=== PATIENT | female | born 1990 | race Caucasian/White ===

== ENCOUNTER 2021-11-12 04:41 | Inpatient (IN) ==
[2021-11-12] MEDS ORDERED: OXYTOCIN 30 UNITS/500 ML BAG IV PRN ×2 (07:36→14:59)
--- NOTE | 2021-11-12 08:13 | History & Physical Report ---
Date of Service November 12, 2021 Assessment & Plan (1) : Plan: 31 y/o G1 at 39 6/7 wga presents in early labor VSS Fetus cat 1 Labor - appears to be in early labor, will admit GBS neg epidural PRN Admission and Anticipated Discharge Date Admission Date: November 12, 2021 History of Present Illness Chief Complaint: VB Primary Care Provider: PT DECLINED 31 y/o G1 at 39 6/7 presented early this AM w/ c/o VB. She had gone to the bathroom at 3AM and noted some stringy dark blood clot on her pad and was instructed to come in. Only had pink discharge on pad following. +FM; denies regular ctx, LOF. On arrival, SSE was negative for rupture, no active bleeding noted. SVE 2/80/-2. Fetus cat 1. 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 denies hx STIs 04/2021 neg cotest Allergies Allergy/AdvReac Type Severity Reaction Status Date / Time No Known Allergies Allergy Verified 11/06/21 09:19 Home Medications Medication Instructions Recorded Confirmed Type prenat.vits,celeste,zgr-dngs-mgpuy 1 tab PO BID 05/17/21 11/12/21 History Patient History Medical History Benign breast lumps History of chicken pox Surgical History H/O breast biopsy Family History Father Tuberculosis Hypertension Mother Hypotension Thyroid disease Denies family history of Ovarian cancer Prostate cancer Breast cancer Lung cancer Cancer Social History Smoking Status: Never smoker Second Hand Exposure: No; Do You Dip or Chew Tobacco: No; Tobacco Cessation Education Requested by Patient: No Hx Alcohol Use: No Hx Substance Use: No Preferred Language: Austrian Communication Ability: Effective Chief Catalyst Operator Required: No Beliefs That Will Affect Care: Mandaeism Mandaeism Beliefs: Can not have gelatin marital status: marital status details: Pool chávezaundreawanda ([phone] Current Living Situation: Family Current Living Situation Comment: Lives with current occupational status: unemployed Other Information That Helps Us Care for You: No Feels Safe at Home: Yes Safety Concerns: Feels Safe At This Time Assistive Devices: None Physical Exam Genitourinary: Manual OB Exam: + cervical dilation 4 cm, + cervical effacement 80% and + station -2 OB Exam Monitor Tracing: + external FHT monitor used, + external uterine monitor used (q5) and + category I (125/mod/+accel/-decel) Results & Data ([facility]) Vital Signs (Past 12 Hours) Vital Signs Temp Pulse Resp BP 11/12/21 07:14 80 101/62 11/12/21 04:54 93 H 121/84 11/12/21 05:03 97.7 F 93 H 16 121/84 Laboratory Results OB Labs: Blood Type O Positive 04/19/21 Antibody Screen NEGATIVE 04/19/21 F Hemoglobin 12.6 g/dL (12.0-16.0) 08/23/21 Hematocrit 37.1 % (37-47) 08/23/21 Mean Corpuscular Volume 92.2 fL (80-100) 04/19/21 Platelet Count 226 K/uL (130-400) 04/19/21 Rubella IgG Antibody Equivocal (Immune) L 04/19/21 Rapid Plasma Reagin Nonreactive (Nonreactive) 04/19/21 Hepatitis B Surface Antigen Neg (Neg) 04/19/21 Hepatitis C Antibody Neg (Neg) 04/19/21 HIV (1&2) Ab and P24 Ag, 4th Gener Neg (Neg) 04/19/21 Glucose 1 Hour 50 gm Load 113 mg/dl (70-130) 08/23/21 OB Optional Labs: Chlamydia trachomatis RNA NOT DETECTED (NOT DETECTED) 04/19/21 Neisseria gonorrhoeae RNA NOT DETECTED (NOT DETECTED) 04/19/21 Independent Interpretation Lab Interpretation: NOB labs reviewed; rubella equivical and will receive PP-mln CSF/TRM-tqikngpk-bna ZGOUN-hrrjnzja-ahl GBS neg Code Status & VTE Plan VTE Prophylaxis Plan VTE Prophylaxis will be ordered: No Coding Level of Care Code None Diagnoses Z34.90
--- NOTE | 2021-11-12 08:59 | Labor Progress Brief Note ---
Date of Service November 12, 2021 Subjective Tolerating ctx well, no VB, no LOF. Good FM. Assessment & Plan (1) Normal labor: Plan: Introduced myself to patient, discussed her admission for early labor and plan of care. Will reassess cervix at least 2hr from last check, and can augment prn or allow progress if continuing. Patient declines pain mgmt at this time. SROM has not yet occurred per patient report. GBS neg. Admission and Anticipated Discharge Date Admission Date: November 12, 2021 Physical Exam Genitourinary: FHT Cat 1 [place] Q4min Cvx not rechecked at this visit Results & Data ([facility]) Vital Signs (Past 12 Hours) Vital Signs Temp Pulse Resp BP 11/12/21 07:14 98.2 F 80 20 101/62 11/12/21 04:54 93 H 121/84 11/12/21 05:03 97.7 F 93 H 16 121/84 Coding Level of Care Code None Diagnoses Normal labor O80; Z37.9
[2021-11-12 09:03] LABS: Hematocrit (blood only) 35.8 % (34.1-44.9); Hemoglobin 12.3 g/dl (12.0-16.0); Mean Corpuscular Hemoglobin 31.4 pg (25.0-34.0); Mean Corpuscular Hgb Conc 34.4 g/dL (32.0-36.0); Mean Corpuscular Volume 91.3 fL (80.0-100.0); Mean Platelet Volume 11.4 fL (9.4-12.3); Platelet Count 145 K/uL (130-400); RDW Coefficient of Variation 14.4 % (11.5-14.5); RDW Standard Deviation 47.8 fL (36.4-46.3); Red Blood Count 3.92 M/uL (3.93-5.22); White Blood Count 9.74 K/ul (4.8-10.8)
--- NOTE | 2021-11-12 12:27 | Labor Progress Brief Note ---
Date of Service November 12, 2021 Subjective Tolerating contractions with breathing, walking. Assessment & Plan (1) Normal labor: Plan: AROM now done, epidural on request. Admission and Anticipated Discharge Date Admission Date: November 12, 2021 Physical Exam Genitourinary: 5100/-1, no change. Offered AROM, accepted, AROM for clear fluid. FHT Cat 1 [place] Q 2-9min irregular. Results & Data ([facility]) Vital Signs (Past 12 Hours) Vital Signs Temp Pulse Resp BP 11/12/21 11:47 98.2 F 77 16 110/70 11/12/21 07:14 98.2 F 80 20 101/62 11/12/21 04:54 93 H 121/84 11/12/21 05:03 97.7 F 93 H 16 121/84 Coding Level of Care Code None Diagnoses Normal labor O80; Z37.9
[2021-11-12] MEDS: LACTATED RINGER'S 1,000 ML IV PRN ×3 (13:03→18:47)
[2021-11-12] MEDS ORDERED: ePHEDrine sulfate 50 MG/ML AMP ONE (13:09)
[2021-11-12] MEDS ORDERED: BUPIVACAINE 0.25% 30 ML VIAL ONE (13:10)
[2021-11-12] MEDS ORDERED: SODIUM CHLORIDE 0.9% INJ 10 ML VIAL ONE (13:10)
[2021-11-12] MEDS ORDERED: LIDOCAINE 2%/EPINEPHRINE 1:200,000 20 ML SDV ONE (13:10)
[2021-11-12] MEDS ORDERED: fentaNYL citrate 100 MCG/2 ML VIAL ONE (13:10)
[2021-11-12] MEDS ORDERED: fentaNYL 2MCG/ML ROPIVACAINE 1.25MG/ML 100 ML BAG EPI ONE (13:10)
[2021-11-12] MEDS ORDERED: ePHEDrine sulfate 50 MG/ML AMP IV PRN (14:00)
[2021-11-12] MEDS ORDERED: ONDANSETRON INJ 2 MG/ML 2 ML VIAL IV PRN (14:00)
[2021-11-12] MEDS ORDERED: fentaNYL 2MCG/ML ROPIVACAINE 1.25MG/ML 100 ML BAG EPI PRN (14:00)
[2021-11-12] MEDS ORDERED: diphenhydrAMINE 50 MG/ML VIAL IV PRN (14:00)
[2021-11-12] MEDS ORDERED: NALOXONE HCL 0.4 MG/1 ML VIAL/CARP IV PRN (14:00)
[2021-11-12] MEDS ORDERED: NALOXONE HCL 1 MG in SODIUM CHLORIDE 0.9% 1000ML 1,000 ML IV PRN (14:00)
[2021-11-12] MEDS ORDERED: NALBUPHINE HCL INJ 10 MG/ML AMP IV PRN (14:00)
--- NOTE | 2021-11-12 14:03 | Anesthesiology Consultation ---
Date of Service November 12, 2021 Assessment & Plan (1) Encounter for pre-operative examination: Chart Review Chart Review: Acceptable Risk for Surgery and Patient NOT seen in Pre Admission Testing Consults Requested none ASA ASA2 Proposed Anesthesia Anesthesia Type: Labor Epidural and CSE Risk / Benefits Reviewed With: PT / POA / Parent / Guardian, Accepts Plan and Informed Consent Obtained History Height/Weight Height: 4 ft 11.84 in Weight: 55.338 kg Allergies Allergy/AdvReac Type Severity Reaction Status Date / Time No Known Allergies Allergy Verified 11/06/21 09:19 Medications Home Medications Medication Instructions Recorded Confirmed Last Taken prenat.vits,celeste,rvu-vucb-msuri 1 tab PO BID 05/17/21 11/12/21 11/11/21 14:00 Active Medications Generic Name Dose Route Start Last Admin Trade Name Freq PRN Reason Stop Dose Admin Lactated Ringer's 1,000 mls @ 125 mls/hr 11/12/21 07:36 11/12/21 13:06 Lr IV 11/14/21 07:35 999 mls/hr .Q8H PRN Infusion L&D Protocol Protocol NPO Date Last Intake of Fluids: 11/12/21 Time Last Intake of Fluids: 13:00 Date Last Intake of Solids: 11/12/21 Time Last Intake of Solids: 07:00 Past Medical History Medical History Benign breast lumps History of chicken pox Exercise / Class Metabolic Activity II 4-5 Yardwork/Stairs/Walk up hill Past Family History Family History Father Tuberculosis Hypertension Mother Hypotension Thyroid disease Denies family history of Ovarian cancer Prostate cancer Breast cancer Lung cancer Cancer Past Surgical History Surgical History H/O breast biopsy Past Anesthesia History No Hx of Anesthesia Complications and No Family Hx of Anesthesia Complications History of PONV No Hx of PONV and No Hx of Motion Sickness Social History Smoking Status: Never smoker Do You Dip or Chew Tobacco: No Hx Alcohol Use: No Hx Substance Use: No substance use type: does not use Review of Systems no chest pain or sob Physical Exam Vital Signs Last Vital Signs Temp 36.9 C 11/12/21 13:51 Pulse 84 11/12/21 13:56 Resp 20 11/12/21 13:51 BP 97/80 L 11/12/21 13:51 Pulse Ox 100 11/12/21 13:56 ENMT Mouth: no TMJ abnormality Thyromental Distance: > or= 3.5 Finger Breadths Mallampati Class: II Neck normal visual inspection Respiratory normal respiratory effort Auscultation: lungs clear to auscultation bilaterally Cardiovascular Rate/Rhythm: regular rate and regular rhythm Musculoskeletal Spine: normal cervical ROM Neurologic moves all extremities Psychiatric Orientation: alert and oriented x 3 Testing Laboratory Results 11/12/21 08:35
[2021-11-12] MEDS ORDERED: CALCIUM CARBONATE 500 MG CHEWABLE TAB PO PRN (20:41)
--- NOTE | 2021-11-12 20:43 | Labor Progress Brief Note ---
Date of Service November 12, 2021 Assessment & Plan (1) Normal labor: Plan: Per RN, patient c/o GERD which worsens if she pushes, so patient has been reluctant to push at all or to give maximal effort when she does. Perhaps 1 hour of true pushing effort so far, with patient agreeing to give good effort for only 2 attempts per contraction much of the time. TUMS 1500mg ordered now, will then resume active pushing after hopefully getting some relief. Admission and Anticipated Discharge Date Admission Date: November 12, 2021 Physical Exam Genitourinary: FHT Cat 1 [place] Q2min Second stage - resting at the moment Results & Data ([facility]) Vital Signs (Past 12 Hours) Vital Signs Temp Pulse Resp BP Pulse Ox O2 Del Method 11/12/21 19:15 98.4 F 18 99 Room Air 11/12/21 18:50 98.6 F 20 11/12/21 20:38 98.1 F 11/12/21 20:36 81 100 11/12/21 19:15 98.1 F 11/12/21 19:15 98.4 F 11/12/21 20:31 95 H 99 11/12/21 20:28 89 109/67 11/12/21 20:26 91 H 99 11/12/21 20:21 96 H 98 11/12/21 20:16 113 H 99 11/12/21 20:13 97 H 105/57 L 11/12/21 20:11 100 H 99 11/12/21 20:06 119 H 98 11/12/21 20:01 87 99 11/12/21 19:59 100 H 100/59 L 11/12/21 19:56 96 H 97 11/12/21 19:51 114 H 99 11/12/21 19:49 94 H 109/59 L 11/12/21 19:46 112 H 99 11/12/21 19:41 116 H 99 11/12/21 19:36 92 H 99 11/12/21 19:31 119 H 99 11/12/21 19:30 95 H 140/63 11/12/21 19:26 103 H 99 11/12/21 19:21 107 H 98 11/12/21 19:20 107 H 88 L 11/12/21 19:16 97 H 99 11/12/21 19:11 94 H 99 11/12/21 19:06 91 H 99 11/12/21 19:01 104 H 98 11/12/21 19:00 90 110/80 11/12/21 18:56 105 H 100 11/12/21 18:51 147 H 98 11/12/21 18:46 97 H 100 11/12/21 18:44 85 116/70 11/12/21 18:41 76 98 11/12/21 18:36 77 98 11/12/21 18:31 76 99 11/12/21 18:30 78 115/68 11/12/21 18:26 74 98 11/12/21 18:21 85 100 11/12/21 18:16 96 H 99 11/12/21 18:15 139 H 107/69 11/12/21 18:11 84 100 11/12/21 18:06 97 H 100 11/12/21 18:04 99.9 F H 90 20 105/59 L 11/12/21 18:01 82 99 11/12/21 17:58 76 190/125 H 11/12/21 17:56 89 100 11/12/21 17:51 95 H 99 11/12/21 17:46 92 H 100 11/12/21 17:41 118 H 99 11/12/21 17:36 106 H 100 11/12/21 17:31 82 100 11/12/21 17:29 81 20 100/68 11/12/21 17:26 89 99 11/12/21 17:21 77 100 11/12/21 17:16 92 H 100 11/12/21 17:15 88 107/60 11/12/21 17:11 85 100 11/12/21 17:06 96 H 100 11/12/21 17:01 83 100 11/12/21 16:59 76 16 99/61 L 11/12/21 16:56 76 99 11/12/21 16:51 75 99 11/12/21 16:46 76 99 11/12/21 16:43 68 101/61 11/12/21 16:41 71 99 11/12/21 16:36 81 99 11/12/21 16:31 75 99 11/12/21 16:28 71 99/63 L 11/12/21 16:26 98.4 F 80 20 99 11/12/21 16:21 82 100 08/09/22 16:16 83 100 11/12/21 16:13 77 20 97/68 L 11/12/21 16:11 97 H 100 11/12/21 16:06 76 100 11/12/21 16:01 77 99 11/12/21 15:59 72 112/70 11/12/21 15:56 69 98 11/12/21 15:51 68 98 11/12/21 15:46 73 98 11/12/21 15:43 71 112/68 11/12/21 15:41 74 97 11/12/21 15:36 74 98 11/12/21 15:31 68 98 11/12/21 15:28 98.4 F 72 16 100/66 11/12/21 15:26 82 98 11/12/21 15:21 71 97 11/12/21 15:16 70 97 11/12/21 15:14 69 101/65 11/12/21 15:00 16 11/12/21 15:00 16 11/12/21 15:11 70 97 11/12/21 15:06 75 97 11/12/21 15:01 78 97 11/12/21 14:58 71 107/57 L 11/12/21 14:56 76 98 11/12/21 14:51 74 98 11/12/21 14:46 72 97 11/12/21 14:44 67 99/59 L 11/12/21 14:41 71 98 11/12/21 14:36 68 98 11/12/21 14:31 70 98 11/12/21 14:27 78 112/68 11/12/21 14:26 85 99 11/12/21 14:25 71 98/62 L 11/12/21 14:23 76 102/65 11/12/21 14:21 80 107/67 100 11/12/21 14:19 74 103/67 11/12/21 14:16 78 100/63 100 11/12/21 14:11 90 99 11/12/21 14:06 98 H 99 11/12/21 14:01 87 99 11/12/21 13:56 84 100 11/12/21 13:51 98.4 F 95 H 20 97/80 L 99 11/12/21 11:47 98.2 F 77 16 110/70 Coding Level of Care Code None Diagnoses Normal labor O80; Z37.9
--- NOTE | 2021-11-12 21:36 | Delivery Summary ---
Vaginal Delivery Summary Date of Service November 12, 2021 Vaginal Delivery Summary DIAGNOSES: 1. [place] intrauterine at 39w6d gestation. 2. Spontaneous onset of labor. 3. Group B Streptococcus Neg. PROCEDURE: Spontaneous vaginal delivery and repair of second degree laceration. SURGEON: Oksana Dela Cruz MD. WOOD PANEL INSPECTOR: None. ESTIMATED BLOOD LOSS: 350 mL. COMPLICATIONS: None. PLACENTA: Spontaneous and intact with a 3-vessel cord. DISPOSITION: Stable to labor and delivery. DESCRIPTION: The patient pushed well and brought the head to in DOA position. The infant's head was allowed to deliver with contraction force and no further active pushing, with the perineum protected during this time. There was no nuchal cord. The left shoulder was anterior. The shoulders and body delivered without any difficulty, and the infant was placed on the maternal abdomen. It was vigorous and moving all extremities, and making respiratory efforts. The cord was doubly clamped by the MD and then cut by the FOB. The placenta delivered spontaneously and was noted to be intact and with a 3VC. The cervix, vagina and perineum were examined and were found to have a second-degree laceration, which was repaired using vicryl suture in the usual manner, including a crown stitch to rebuild the perineal body. The fundus was firm and lochia minimal immediately after delivery. [facility] Vaginal Delivery Charge Vaginal Delivery Codes: 21519 global code for the antepartum, delivery, and post-
[2021-11-12] MEDS ORDERED: IBUPROFEN 600 MG TAB PO PRN (21:47)
[2021-11-12] MEDS ORDERED: HYDROCORTISONE ACETATE 25 MG SUPP PR PRN (21:47)
[2021-11-12] MEDS ORDERED: ACETAMINOPHEN 325 MG TAB PO PRN (21:47)
[2021-11-12] MEDS ORDERED: MEASLES, MUMPS & RUBELLA VIRUS VIAL SQ ONE (21:47)
[2021-11-12] MEDS ORDERED: oxyCODONE/ACETAMINOPHEN 5mg/325mg TAB PO PRN (21:47)
[2021-11-12] MEDS ORDERED: DIPHTHERIA/TETANUS/PERTUSSIS 0.5 ML SYR/VIAL IM ONE (21:47)
[2021-11-12] MEDS ORDERED: BENZOCAINE 20% AER SPR 82.5 GM CAN EXT PRN (21:47)
[2021-11-13 06:49] LABS: Hematocrit (blood only) 31.7 % (34.1-44.9); Hemoglobin 10.9 g/dl (12.0-16.0); Mean Corpuscular Hgb Conc 34.4 g/dL (32.0-36.0); Mean Platelet Volume 10.9 fL (9.4-12.3); Platelet Count 149 K/uL (130-400); RDW Coefficient of Variation 14.6 % (11.5-14.5); RDW Standard Deviation 49.7 fL (36.4-46.3); Red Blood Count 3.41 M/uL (3.93-5.22); White Blood Count 19.91 K/ul (4.8-10.8)
[2021-11-13] MEDS: DOCUSATE SODIUM 100 MG CAP PO SCH ×2 (07:39→22:05)
[2021-11-13] MEDS: PRENATAL VITAMIN 1 TAB PO SCH (07:39)
--- NOTE | 2021-11-13 08:01 | Obstetrical Progress Note ---
Date of Service <Maria C Delatorre DO - Last Filed: 11/13/21 08:01> November 13, 2021 Assessment & Plan <Maria C Delatorre DO - Last Filed: 11/13/21 08:01> (1) : Plan s/p PPD 1 -vitals examined and WNL, -hemoglobin reviewed at 12.3 -tmax at 37.7 -encourage ambulation, monitor and treat pain with motrin PRN, monitor lochia -encourage , continue normal diet <Oksana Dela Cruz MD - Last Filed: 11/13/21 08:08> (1) : Subjective <Maria C Delatorre DO - Last Filed: 11/13/21 08:01> Constitutional: no fever, no chills or no sweats Respiratory: no cough, no dyspnea or no wheezing Cardiovascular: no chest pain, no palpitations or no calf pain Breast: no breast pain Genitourinary (female): no dysuria Neurologic: no headache(s) Physical Exam <Maria C Delatorre DO - Last Filed: 11/13/21 08:01> Carolina is a 31 y/o female who is PPD #1 following with 2nd degree laceration repair. She reports feeling well overall this morning but a lot of abdominal cramping and pain with sitting. Voiding without issue. Tolerating meals overnight and able to ambulate some. Not passing gas or bowel movement yet. Has persistent lochia with some improvement this morning. Currently breast feeding. Constitutional WD/WN, vitals as above no acute distress Respiratory no respiratory distress Auscultation: lungs clear to auscultation bilaterally; no rales, no rhonchi and no wheezes Cardiovascular RRR, no murmur, no edema Extremities: no calf tenderness and no edema Negative Edinson's sign bilaterally. Gastrointestinal (Abdomen) Inspection/Auscultation: normal bowel sounds Genitourinary Uterine fundus firm, palpable below the umbilicus. Uterine fibroid felt Results & Data ([facility]) <Maria C Delatorre DO - Last Filed: 11/13/21 08:01> Vital Signs (Past 12 Hours) Vital Signs Temp Pulse Pulse Resp BP BP Pulse Ox 11/13/21 05:58 90 100 11/13/21 03:25 89 99/67 L 11/13/21 03:17 246 H 99/60 L 11/13/21 03:16 245 H 96/56 L 11/13/21 03:15 36.9 C 245 H 18 94/56 L 11/13/21 00:35 37.0 C 103 H 16 96/63 L 11/12/21 23:05 36.7 C 16 99 11/12/21 23:55 105 H 100/61 11/12/21 23:40 103 H 99/65 L 11/12/21 23:25 93 H 103/67 11/12/21 23:10 99 H 103/64 11/12/21 22:55 85 104/65 11/12/21 22:40 87 101/56 L 11/12/21 22:25 96 H 105/62 11/12/21 22:10 109 H 102/71 11/12/21 21:58 86 108/57 L 11/12/21 21:56 91 11/12/21 21:56 93 H 11/12/21 21:56 89 92 11/12/21 21:51 107 H 100 11/12/21 21:46 102 H 99 11/12/21 21:42 112 H 87 L 11/12/21 21:43 99 H 173/68 H 11/12/21 21:41 94 H 99 11/12/21 21:36 97 H 98 11/12/21 21:31 101 H 98 11/12/21 21:26 118 H 97 11/12/21 21:21 129 H 98 11/12/21 21:17 133 H 94 11/12/21 21:16 116 H 95 11/12/21 21:13 106 H 107/68 11/12/21 21:11 129 H 98 11/12/21 21:06 131 H 100 11/12/21 21:01 105 H 99 11/12/21 20:56 110 H 98 11/12/21 20:53 94 H 90 11/12/21 20:51 100 H 98 11/12/21 20:46 103 H 98 11/12/21 20:43 78 113/67 11/12/21 20:41 80 99 11/12/21 20:38 36.7 C 11/12/21 20:36 81 100 11/12/21 20:31 95 H 99 11/12/21 20:28 89 109/67 11/12/21 20:26 91 H 99 11/12/21 20:21 96 H 98 11/12/21 20:16 113 H 99 11/12/21 20:13 97 H 105/57 L 11/12/21 20:11 100 H 99 11/12/21 20:06 119 H 98 11/12/21 20:01 87 99 11/12/21 19:59 100 H 100/59 L O2 Del Method 11/13/21 05:58 Room Air 11/13/21 03:25 11/13/21 03:17 11/13/21 03:16 11/13/21 03:15 Room Air 11/13/21 00:35 Room Air 11/12/21 23:05 Room Air 11/12/21 23:55 11/12/21 23:40 11/12/21 23:25 11/12/21 23:10 11/12/21 22:55 11/12/21 22:40 11/12/21 22:25 11/12/21 22:10 11/12/21 21:58 11/12/21 21:56 11/12/21 21:56 11/12/21 21:56 11/12/21 21:51 11/12/21 21:46 11/12/21 21:42 11/12/21 21:43 11/12/21 21:41 11/12/21 21:36 11/12/21 21:31 11/12/21 21:26 11/12/21 21:21 11/12/21 21:17 11/12/21 21:16 11/12/21 21:13 11/12/21 21:11 11/12/21 21:06 11/12/21 21:01 11/12/21 20:56 11/12/21 20:53 11/12/21 20:51 11/12/21 20:46 11/12/21 20:43 11/12/21 20:41 11/12/21 20:38 11/12/21 20:36 11/12/21 20:31 11/12/21 20:28 11/12/21 20:26 11/12/21 20:21 11/12/21 20:16 11/12/21 20:13 11/12/21 20:11 11/12/21 20:06 11/12/21 20:01 11/12/21 19:59 <Oksana Dela Cruz MD - Last Filed: 11/13/21 08:08> Co-Signing Physician Notes Resident Physician Supervision Note: I interviewed and examined the patient. Discussed with Dr. Delatorre and agree with findings and plan as documented in the note. Any exceptions or clarifications are listed here: [ ] Documented By: Oksana Dela Cruz MD, FACOG
--- NOTE | 2021-11-13 09:43 | Anesthesiology Progress Note ---
Date of Service November 13, 2021 Anesthesia Post Procedure Vital Signs Vital Signs: Temp Pulse Pulse Resp BP BP Pulse Ox 11/13/21 07:45 36.7 C 89 20 103/69 98 11/13/21 05:58 90 100 11/13/21 03:25 89 99/67 L 11/13/21 03:17 246 H 99/60 L 11/13/21 03:16 245 H 96/56 L 11/13/21 03:15 36.9 C 245 H 18 94/56 L 11/13/21 00:35 37.0 C 103 H 16 96/63 L 11/12/21 23:05 36.7 C 16 99 11/12/21 19:15 36.9 C 18 99 11/12/21 18:50 37 C 20 11/12/21 23:55 105 H 100/61 11/12/21 23:40 103 H 99/65 L 11/12/21 23:25 93 H 103/67 11/12/21 23:10 99 H 103/64 11/12/21 22:55 85 104/65 11/12/21 22:40 87 101/56 L 11/12/21 22:25 96 H 105/62 11/12/21 22:10 109 H 102/71 11/12/21 21:58 86 108/57 L 11/12/21 21:56 91 11/12/21 21:56 93 H 11/12/21 21:56 89 92 11/12/21 21:51 107 H 100 11/12/21 21:46 102 H 99 11/12/21 21:42 112 H 87 L 11/12/21 21:43 99 H 173/68 H 11/12/21 21:41 94 H 99 11/12/21 21:36 97 H 98 11/12/21 21:31 101 H 98 11/12/21 21:26 118 H 97 11/12/21 21:21 129 H 98 11/12/21 21:17 133 H 94 11/12/21 21:16 116 H 95 11/12/21 21:13 106 H 107/68 11/12/21 21:11 129 H 98 11/12/21 21:06 131 H 100 11/12/21 21:01 105 H 99 11/12/21 20:56 110 H 98 11/12/21 20:53 94 H 90 11/12/21 20:51 100 H 98 11/12/21 20:46 103 H 98 11/12/21 20:43 78 113/67 11/12/21 20:41 80 99 11/12/21 20:38 36.7 C 11/12/21 20:36 81 100 11/12/21 19:15 36.7 C 11/12/21 19:15 36.9 C 11/12/21 20:31 95 H 99 11/12/21 20:28 89 109/67 11/12/21 20:26 91 H 99 11/12/21 20:21 96 H 98 11/12/21 20:16 113 H 99 11/12/21 20:13 97 H 105/57 L 11/12/21 20:11 100 H 99 11/12/21 20:06 119 H 98 11/12/21 20:01 87 99 11/12/21 19:59 100 H 100/59 L 11/12/21 19:56 96 H 97 11/12/21 19:51 114 H 99 11/12/21 19:49 94 H 109/59 L 11/12/21 19:46 112 H 99 11/12/21 19:41 116 H 99 11/12/21 19:36 92 H 99 11/12/21 19:31 119 H 99 11/12/21 19:30 95 H 140/63 11/12/21 19:26 103 H 99 11/12/21 19:21 107 H 98 11/12/21 19:20 107 H 88 L 11/12/21 19:16 97 H 99 11/12/21 19:11 94 H 99 11/12/21 19:06 91 H 99 11/12/21 19:01 104 H 98 11/12/21 19:00 90 110/80 11/12/21 18:56 105 H 100 11/12/21 18:51 147 H 98 11/12/21 18:46 97 H 100 11/12/21 18:44 85 116/70 11/12/21 18:41 76 98 11/12/21 18:36 77 98 11/12/21 18:31 76 99 11/12/21 18:30 78 115/68 11/12/21 18:26 74 98 08/09/22 18:21 85 100 11/12/21 18:16 96 H 99 11/12/21 18:15 139 H 107/69 11/12/21 18:11 84 100 11/12/21 18:06 97 H 100 11/12/21 18:04 37.7 C H 90 20 105/59 L 11/12/21 18:01 82 99 11/12/21 17:58 76 190/125 H 11/12/21 17:56 89 100 11/12/21 17:51 95 H 99 11/12/21 17:46 92 H 100 11/12/21 17:41 118 H 99 11/12/21 17:36 106 H 100 11/12/21 17:31 82 100 11/12/21 17:29 81 20 100/68 11/12/21 17:26 89 99 11/12/21 17:21 77 100 11/12/21 17:16 92 H 100 11/12/21 17:15 88 107/60 11/12/21 17:11 85 100 11/12/21 17:06 96 H 100 11/12/21 17:01 83 100 11/12/21 16:59 76 16 99/61 L 11/12/21 16:56 76 99 11/12/21 16:51 75 99 11/12/21 16:46 76 99 11/12/21 16:43 68 101/61 11/12/21 16:41 71 99 11/12/21 16:36 81 99 11/12/21 16:31 75 99 11/12/21 16:28 71 99/63 L 11/12/21 16:26 36.9 C 80 20 99 11/12/21 16:21 82 100 11/12/21 16:16 83 100 11/12/21 16:13 77 20 97/68 L 11/12/21 16:11 97 H 100 11/12/21 16:06 76 100 11/12/21 16:01 77 99 11/12/21 15:59 72 112/70 11/12/21 15:56 69 98 11/12/21 15:51 68 98 11/12/21 15:46 73 98 11/12/21 15:43 71 112/68 11/12/21 15:41 74 97 11/12/21 15:36 74 98 11/12/21 15:31 68 98 11/12/21 15:28 36.9 C 72 16 100/66 11/12/21 15:26 82 98 11/12/21 15:21 71 97 11/12/21 15:16 70 97 11/12/21 15:14 69 101/65 11/12/21 15:00 16 11/12/21 15:00 16 11/12/21 15:11 70 97 11/12/21 15:06 75 97 11/12/21 15:01 78 97 11/12/21 14:58 71 107/57 L 11/12/21 14:56 76 98 11/12/21 14:51 74 98 11/12/21 14:46 72 97 11/12/21 14:44 67 99/59 L 11/12/21 14:41 71 98 11/12/21 14:36 68 98 11/12/21 14:31 70 98 11/12/21 14:27 78 112/68 11/12/21 14:26 85 99 11/12/21 14:25 71 98/62 L 11/12/21 14:23 76 102/65 11/12/21 14:21 80 107/67 100 11/12/21 14:19 74 103/67 11/12/21 14:16 78 100/63 100 11/12/21 14:11 90 99 11/12/21 14:06 98 H 99 11/12/21 14:01 87 99 11/12/21 13:56 84 100 11/12/21 13:51 36.9 C 95 H 20 97/80 L 99 11/12/21 11:47 36.8 C 77 16 110/70 O2 Del Method 11/13/21 07:45 Room Air 11/13/21 05:58 Room Air 11/13/21 03:25 11/13/21 03:17 11/13/21 03:16 11/13/21 03:15 Room Air 11/13/21 00:35 Room Air 11/12/21 23:05 Room Air 11/12/21 19:15 Room Air 11/12/21 18:50 11/12/21 23:55 11/12/21 23:40 11/12/21 23:25 11/12/21 23:10 11/12/21 22:55 11/12/21 22:40 11/12/21 22:25 11/12/21 22:10 11/12/21 21:58 11/12/21 21:56 11/12/21 21:56 11/12/21 21:56 11/12/21 21:51 11/12/21 21:46 11/12/21 21:42 11/12/21 21:43 11/12/21 21:41 11/12/21 21:36 11/12/21 21:31 11/12/21 21:26 11/12/21 21:21 11/12/21 21:17 11/12/21 21:16 11/12/21 21:13 11/12/21 21:11 11/12/21 21:06 11/12/21 21:01 11/12/21 20:56 11/12/21 20:53 11/12/21 20:51 11/12/21 20:46 11/12/21 20:43 11/12/21 20:41 11/12/21 20:38 11/12/21 20:36 11/12/21 19:15 11/12/21 19:15 11/12/21 20:31 11/12/21 20:28 11/12/21 20:26 11/12/21 20:21 11/12/21 20:16 11/12/21 20:13 11/12/21 20:11 11/12/21 20:06 11/12/21 20:01 11/12/21 19:59 11/12/21 19:56 11/12/21 19:51 11/12/21 19:49 11/12/21 19:46 11/12/21 19:41 11/12/21 19:36 11/12/21 19:31 11/12/21 19:30 11/12/21 19:26 11/12/21 19:21 11/12/21 19:20 11/12/21 19:16 11/12/21 19:11 11/12/21 19:06 11/12/21 19:01 11/12/21 19:00 11/12/21 18:56 11/12/21 18:51 11/12/21 18:46 11/12/21 18:44 11/12/21 18:41 11/12/21 18:36 11/12/21 18:31 11/12/21 18:30 11/12/21 18:26 11/12/21 18:21 11/12/21 18:16 11/12/21 18:15 11/12/21 18:11 11/12/21 18:06 11/12/21 18:04 11/12/21 18:01 11/12/21 17:58 11/12/21 17:56 11/12/21 17:51 11/12/21 17:46 11/12/21 17:41 11/12/21 17:36 11/12/21 17:31 11/12/21 17:29 11/12/21 17:26 11/12/21 17:21 11/12/21 17:16 11/12/21 17:15 11/12/21 17:11 11/12/21 17:06 11/12/21 17:01 11/12/21 16:59 11/12/21 16:56 11/12/21 16:51 11/12/21 16:46 11/12/21 16:43 11/12/21 16:41 11/12/21 16:36 11/12/21 16:31 11/12/21 16:28 11/12/21 16:26 11/12/21 16:21 11/12/21 16:16 11/12/21 16:13 11/12/21 16:11 11/12/21 16:06 11/12/21 16:01 11/12/21 15:59 11/12/21 15:56 11/12/21 15:51 11/12/21 15:46 11/12/21 15:43 11/12/21 15:41 11/12/21 15:36 11/12/21 15:31 11/12/21 15:28 11/12/21 15:26 11/12/21 15:21 11/12/21 15:16 11/12/21 15:14 11/12/21 15:00 11/12/21 15:00 11/12/21 15:11 11/12/21 15:06 11/12/21 15:01 11/12/21 14:58 11/12/21 14:56 11/12/21 14:51 11/12/21 14:46 11/12/21 14:44 11/12/21 14:41 11/12/21 14:36 11/12/21 14:31 11/12/21 14:27 11/12/21 14:26 11/12/21 14:25 11/12/21 14:23 11/12/21 14:21 11/12/21 14:19 11/12/21 14:16 11/12/21 14:11 11/12/21 14:06 11/12/21 14:01 11/12/21 13:56 11/12/21 13:51 11/12/21 11:47 Pain Intensity Abdomen: Pain Intensity: 6 Transfer of Care Handoff Completed per policy Notes Mental Status: alert / awake / arousable and participated in evaluation Patient Amnestic to Procedure: Yes Nausea / Vomiting: adequately controlled Pain: adequately controlled Airway Patency, RR, SpO2: stable & adequate BP & HR: stable & adequate Hydration State: stable & adequate Anesthetic Complications: no major complications apparent and Pt Satisfied with anesthetic care
--- NOTE | 2021-11-14 05:45 | Obstetrical Progress Note ---
Date of Service <Maria C Delatorre DO - Last Filed: 11/14/21 07:24> November 14, 2021 Assessment & Plan <Maria C Delatorre DO - Last Filed: 11/14/21 07:24> (1) : (2) Normal labor: (3) Encounter for supervision of normal intrauterine in primigravida, antepartum: Plan s/p PPD 2 -Vital signs examined and WNL, Tmax at 37.7 -Hemoglobin reviewed, 12.3 (8/) 10.9 (8/10) 10.6 (8/) -O+, GBS-, rubella equivocal -Encourage ambulation, monitor and treat pain with motrin PRN, monitor lochia -Encourage , continue normal diet. Discussed taking Colace to help with constipation. -Discussed discharge instructions with patient <Felisa Manriquez MD, FACOG - Last Filed: 11/14/21 07:53> (1) : (2) Normal labor: (3) Encounter for supervision of normal intrauterine in primigravida, antepartum: Subjective <aMria C Delatorre DO - Last Filed: 11/14/21 07:24> Carolina is a 31 y/o female who is PPD #2 following at 39 6/7 weeks with 2nd degree laceration repair. Patient was seen and examined at bedside. She reports feeling well overall this morning but some abdominal cramping and pain with sitting. Voiding without issue. Tolerating meals overnight and able to ambulate some. Has been passing gas but has not had a bowel movement yet. Has persistent lochia with some improvement this morning. Currently breast feeding. Constitutional: no fever, no chills or no sweats Respiratory: no cough, no dyspnea or no wheezing Cardiovascular: no chest pain, no palpitations or no calf pain Breast: no breast pain Genitourinary (female): no dysuria Neurologic: no headache(s) Physical Exam <Maria C Delatorre DO - Last Filed: 11/14/21 07:24> Constitutional WD/WN, vitals as above no acute distress Respiratory no respiratory distress Auscultation: lungs clear to auscultation bilaterally; no rales, no rhonchi and no wheezes Cardiovascular RRR, no murmur, no edema Extremities: no calf tenderness and no edema Gastrointestinal (Abdomen) Inspection/Auscultation: normal bowel sounds Genitourinary Uterine fundus firm, palpable below umbilicus. Has palpable uterine fibroid. Results & Data ([facility]) <Maria C Delatorre DO - Last Filed: 11/14/21 07:24> Vital Signs (Past 12 Hours) Vital Signs Temp Pulse Resp BP O2 Del Method 11/14/21 00:00 37.3 C 96 H 16 100/66 Room Air 11/13/21 19:30 36.8 C 91 H 16 101/70 Room Air <Felisa Manriquez MD, FACOG - Last Filed: 11/14/21 07:53> Co-Signing Physician Notes Resident Physician Supervision Note: I interviewed and examined the patient. Discussed with Dr. Delatorre and agree with findings and plan as documented in the note. Any exceptions or clarifications are listed here: [None] Documented By: Felisa Manriquez MD, FACOG Resident Activity Tracking <Maria C Delatorre DO - Last Filed: 11/14/21 07:24> Resident Involvement: Resident Care Provided Care Provided: OB Delivery
[2021-11-14 07:12] LABS: Hematocrit (blood only) 31.4 % (34.1-44.9); Hemoglobin 10.6 g/dl (12.0-16.0)
[2021-11-14] MEDS: PRENATAL VITAMIN 1 TAB PO SCH (09:07)
[2021-11-14] MEDS: DOCUSATE SODIUM 100 MG CAP PO SCH (09:07)
== END 2021-11-14 19:36 | disposition home or self-care (01) | DRG 807 ==
LOC: OPB 04:41 → 4S1 04:45 → 4E2 11-13